=== PATIENT | female | born 1940 | race Caucasian/White ===

== ENCOUNTER 2016-06-29 13:00 | Inpatient (IN) | payer MEDICARE, OTHER ==
[~2016-06-29] VITALS: Ht 157.5 cm; Wt 56.3 kg
--- NOTE | ~2016-06-29 | DS ---
PATIENT'S NAME: LYNDA BAILEY [facility] AGE: 75 Y [address] ROOM: [place] [address] LOCATION: [facility] ADMIT DATE: 07/02/2016 Discharge Summary DISCHARGE DATE: 07/03/2016 FAMILY PHYSICIAN: Erickson Rai DO ATTENDING PHYSICIAN: Silviano See ADMISSION MAIN DIAGNOSIS: Ventriculoperitoneal shunt malfunction, hydrocephalus. DISCHARGE MAIN DIAGNOSIS: Ventriculoperitoneal shunt malfunction, hydrocephalus. PROCEDURE: Revision of right occipital ventriculoperitoneal shunt. COMPLICATIONS DURING ADMISSION: None. MEDICATIONS ON DISCHARGE: 1. Resume all preadmission medications as listed. 2. Tylenol 325 to 650 mg p.o. every 4 hours as needed. DISCHARGE INSTRUCTIONS AND FOLLOWUP APPOINTMENTS: 1. Myself on July 14, 2016 for staple removal. 2. Call my office directly for any concerns regarding the wound healing or for any new neurologic symptoms. 3. Keep the dressing on and dry till July 10, then take off and keep the wound open to air. HOSPITAL COURSE: The above patient was admitted electively to the hospital for the above-mentioned surgery. She underwent an unremarkable operation. Postoperatively, the patient did very well. She had no new neurologic symptoms or deficits. She mobilized well with physiotherapy and occupational therapy. On the day of discharge, she was examined. She remained neurologically intact. The occipital wound, abdominal wound were healing very well with no evidence of infection or dehiscence or CSF leak. She also had a shunt series x-ray done on postoperative day #1 and that showed no complications. She also had a noncontrast CT head done on the day of discharge and that showed slight improvement in the size of the lateral ventricles and no complications. I discussed the discharge instructions with the patient and her , and based on that, the patient was sent home. PATIENT'S NAME: LYNDA BAILEY [facility] AGE: 75 Y [address] ROOM: [place] [address] LOCATION: [facility] ADMIT DATE: 07/02/2016 Discharge Summary DISCHARGE DATE: 07/03/2016 FAMILY PHYSICIAN: Erickson Rai DO ATTENDING PHYSICIAN: Silviano See MD AB/modl /[id number] CC: Erickson Rai DO d: 07/04/16 0135 t: 07/05/16 1823, DISCHARGE SUMMARY
--- NOTE | ~2016-06-29 | OR ---
PATIENT'S NAME: LYNDA BAILEY [facility] AGE: 75 Y [address] ROOM: [place] [address] LOCATION: [facility] ADMIT DATE: 07/02/2016 OR/Procedure Report DISCHARGE DATE: FAMILY PHYSICIAN: Erickson Rai DO ATTENDING PHYSICIAN: SILVIANO SEE SURGEON: Silviano See MD [employer] MECH[employer]ICAL SPECIALIST: DATE OF PROCEDURE: 07/02/2016 ANESTHESIOLOGIST: Jace Castro M.D. ANESTHESIA: General. COMPLICATIONS: None. ESTIMATED BLOOD LOSS: Minimal. PREOPERATIVE DIAGNOSIS: Right ventriculoperitoneal shunt malfunction, hydrocephalus. POSTOPERATIVE DIAGNOSIS: Right ventriculoperitoneal shunt malfunction, hydrocephalus. PROCEDURE: Revision of right ventriculoperitoneal shunt (existing valve changed to Strata II valve, opening pressure set at 2). CLINICAL HISTORY: The patient is a 75-year-old female patient, who has a right occipital ventriculoperitoneal shunt. She was recently admitted to the hospital with worsening mental status, worsening unsteady gait, and urinary incontinence. She also had complete right wrist drop and she was diagnosed with partial right radial nerve palsy. The patient's shunt was examined and the shunt series did not show any disconnection of the tubing. I adjusted the valve opening pressure multiple times and despite that, the most recent followup CT scan did not show any significant change in the size of the ventricles. The patient's symptoms were moderate to severe. I recommended the above mentioned surgery to explore the shunt and revise it. The patient was brought in for the operation. DESCRIPTION OF PROCEDURE: The patient was seen in the preoperative care unit and the correct side was marked. Then, she was transferred to the main operating theater, was given general anesthetic and underwent endotracheal intubation without complications. Preoperative antibiotics were given. Calf compressors were used throughout the procedure. She was then positioned supine on the table and all her joints and bony prominences were securely padded. The patient's head was turned to the left side and gel bolster was PATIENT'S NAME: LYNDA BAILEY [facility] AGE: 75 Y [address] ROOM: [place] [address] LOCATION: [facility] ADMIT DATE: 07/02/2016 OR/Procedure Report DISCHARGE DATE: FAMILY PHYSICIAN: Erickson Rai DO ATTENDING PHYSICIAN: SILVIANO SEE positioned under the right shoulder. The hair overlying the right suboccipital region was clipped off. The valve region as well as the previous incision were exposed. The abdomen was also exposed and the previous right upper quadrant incision was identified. The surgical sites were then prepped and draped as per usual. I started by opening the abdominal incision. The skin was sharply opened down to the subcutaneous tissue, then the distal catheter was identified. Then, I proceeded to open the head incision. The skin was sharply opened down to the subcutaneous tissue, then using monopolar cautery, the tommy hole, distal part of the ventricular catheter as well as the valve were exposed. I first started by disconnecting the ventricular catheter from the valve. Immediately, CSF escaped under very low pressure. There was very good drainage from the ventricular catheter. Then, I disconnected the valve from the distal catheter. The distal catheter patency was then tested using a manometer. I noticed free flow of the saline through the distal catheter and based on that, I decided to not change the distal catheter. Given that, I proceeded to insert a new strata valve. The strata valve was set at 2 opening pressure. The valve was initially connected to the distal catheter, then to the proximal catheter, and the connection was tied off using 2-0 silk. The valve was then positioned in the subcutaneous pouch without complications. The valve was then anchored to the periosteal tissue with 4-0 Nurolon. I was satisfied with that. Then, I proceeded to closure. The wound was copiously irrigated with bacitracin-containing irrigation. The abdominal wound was closed in layers with 2-0 Vicryl to the subcutaneous tissue and herb for the skin. The head incision was closed in layers with 2-0 Vicryl to the galea and a running 3-0 Prolene for the skin. Sterile dressing and ointment were applied. At the end of the operation, the instrument and sponge counts were correct. The patient tolerated the operation without complications. MD AMARA AVILA/nneka /[id number] CC: Erickson Rai DO d: 07/02/16 1822 t: 07/05/16 1215, OPERATIVE SUMMARY
[~2016-06-29 13:00] MED LIST: ACETAMINOPHEN500 M1 PO; ARICEPT10 MG PO; CALCIUM CITRAT1 EA12 PO; CARBIDOPA-LEVO1 EAC3 PO; COL-RITE50 MG PO; FEMARA 2.5 MG2.5 MG PO; FOLIC ACID-VIT1 EAC1 PO; PRENATAL 1+1)(P1 TAB PO; PROBIOTIC PEAR1 EACH PO; REFRESH OPTIVE15 ML OPHTH; VITAMIN D-40400 UNIT PO; [UNRECOGNIZED DRUG - OTHER] PO
[2016-06-29] MEDS ORDERED: DITROPAN5 MG PO (13:03)
[2016-12-24] MEDS ORDERED: PROTONIX40 MG PO (11:04)
[2016-12-30] MEDS ORDERED: NUCYNTA50 MG PO (11:52)
== END 2016-07-03 10:46 | disposition disaster alternative care site (69) | DRG 32 ==
LOC: GNTU 07-02 05:35
PROVIDERS: ADMIT Neurological Surgery
PROC: 00W60JZ Revision of Synthetic Substitute in Cerebral Ventricle, Open Approach (ICD-10-PCS; principal; 2016-07-02)
DX: T85.09XA Other mechanical complication of ventricular intracranial (communicating) shunt, initial encounter (principal); G91.9 Hydrocephalus, unspecified; G20 Parkinson's disease; Y83.1 Surgical operation with implant of artificial internal device as the cause of abnormal reaction of the patient, or of later complication, without mention of misadventure at the time of the procedure; Z85.3 Personal history of malignant neoplasm of breast; E53.8 Deficiency of other specified B group vitamins
CPT/HCPCS: J0131; J0690; J1100; J1200; J2001; J2405; J3010; J7030

== ENCOUNTER → 2016-08-07 | Outpatient (CLI) | payer MEDICARE, OTHER ==
[~2016-08-07] MED LIST changes: +DITROPAN5 MG PO; +NUCYNTA50 MG PO; +PROTONIX40 MG PO
== END | disposition disaster alternative care site (69) ==
LOC: GRAD 09:59
DX: T85.618A Breakdown (mechanical) of other specified internal prosthetic devices, implants and grafts, initial encounter (principal); I51.7 Cardiomegaly

== ENCOUNTER → 2016-10-09 | Outpatient (CLI) | payer MEDICARE, OTHER | END | disposition disaster alternative care site (69) | LOC: GRAD 09:16 | DX: T85.618A Breakdown (mechanical) of other specified internal prosthetic devices, implants and grafts, initial encounter (principal) ==

== ENCOUNTER → 2016-12-30 | Day surgery (SDC) | payer MEDICARE, OTHER ==
[~2016-12-30] VITALS: Ht 160 cm; Wt 57.8 kg
--- NOTE | ~2016-12-30 | OR ---
PATIENT'S NAME: LYNDA BAILEY [facility] AGE: 76 Y [address] ROOM: [place] [address] LOCATION: [facility] ADMIT DATE: 12/30/2016 OR/Procedure Report DISCHARGE DATE: FAMILY PHYSICIAN: Mandie Singer MD ATTENDING PHYSICIAN: Sameera Chen SURGEON: Sameera Chen MD TEMPORARY HELP AGENCY REFERRAL CLERK: Nas Naranjo MD DATE OF PROCEDURE: 12/30/2016 POSTOPERATIVE DIAGNOSIS: Urinary incontinence. POSTOPERATIVE DIAGNOSIS: Urinary incontinence. PROCEDURE PERFORMED: Suprapubic cystostomy. ANESTHESIA: General. COMPLICATIONS: None. INDICATION FOR PROCEDURE: The patient is a 76-year-old female with urinary incontinence requiring chronic Swift catheter. The patient was noted to have significant leakage around her catheter. Therefore, it was decided she possibly would need bladder neck closure along with her suprapubic cystostomy. DETAILS OF PROCEDURE: After informed consent was obtained, the patient was taken to the operating room. A general anesthetic was applied. She was placed in the dorsal lithotomy position. The groin area and lower abdomen were prepped and draped in the normal sterile fashion. Cystoscope was then introduced into the urethra and bladder without difficulty and the bladder was filled to capacity. Next, the Lowsley retractor was introduced and the tip placed against the abdominal wall. A skin incision was made over the tip of the Lowsley retractor and then electrocautery was used to carry the incision down to the anterior fascial layer. This was then opened with electrocautery exposing, bringing the tip of the Lowsley retractor into the operative field. A 24-Japanese Swift catheter was attached to the tip of the Lowsley retractor and pulled through. The cystoscope was slowly backed into the bladder under direct visualization with the cystoscope. The balloon was inflated. I then injected approximately 120 mL into the bladder and the patient did not leak per urethra. Since the patient did not leak, it was decided to leave the bladder neck open. Next, 0 Prolene sutures in a vertical mattress fashion were used to close her abdominal incision. The catheter was secured with 0 Prolene sutures. The wound was then dressed in normal sterile fashion. The patient tolerated the procedure well and was transferred to recovery room in good condition. PATIENT'S NAME: LYNDA BAILEY [facility] AGE: 76 Y [address] ROOM: [place] [address] LOCATION: [facility] ADMIT DATE: 12/30/2016 OR/Procedure Report DISCHARGE DATE: FAMILY PHYSICIAN: Mandie Singer MD ATTENDING PHYSICIAN: Sameera Chen MD JENI MOFFETT/nneka /[id number] d: 12/30/162238 t: 01/12/17 1645, OPERATIVE SUMMARY
[2016-12-30 08:15] LABS: BASOPHIL % 0.6 %; EOSINOPHIL # 0.3 K/uL (0.0-0.5); HEMATOCRIT 42.2 % (33.0-46.0); HEMOGLOBIN 14.1 g/dL (10.0-15.0); IMMATURE GRANULOCYTE % 0.4 %; LYMPHOCYTE # 1.4 K/uL (0.8-4.0); LYMPHOCYTE % 18.8 %; MCH 29.1 pg (27.0-34.0); MCHC 33.4 gm/dL (32.0-36.5); MCV 87.2 fl (83.0-98.0); MONOCYTE # 0.5 K/uL (0.0-1.0); MONOCYTE % 7.5 %; MPV 8.5 fl (9.4-12.4); NEUTROPHIL # (ANC) 4.9 K/uL (1.8-7.8); NEUTROPHIL % 68.7 %; NRBC % 0 /100WBC (0-0.00); PLATELET COUNT 282 K/uL (150-450); RBC 4.84 M/uL (3.50-5.50); RDW-CV 12.5 % (11.9-14.6); WBC 7.2 K/uL (4.0-11.0)
[2016-12-30 08:34] LABS: ALBUMIN 3.6 gm/dL (3.5-5.0); ANION GAP 10.1 (10.0-19.0); CALCIUM 9.1 mg/dL (8.5-10.5); CREATININE 0.6 mg/dL (0.5-1.1); POTASSIUM 4.1 mMol/L (3.7-5.1); TOTAL BILIRUBIN 0.4 mg/dL (0.0-1.5); TOTAL PROTEIN 7.1 g/dL (6.0-8.4)
== END | disposition disaster alternative care site (69) ==
LOC: GPOC 12-24 13:00 → GSDC 07:26 → GPOC 08:00
PROVIDERS: Urology
PROC: 0T9B00Z Drainage of Bladder with Drainage Device, Open Approach (ICD-10-PCS; principal; 2016-12-30)
DX: N39.41 Urge incontinence (principal); G20 Parkinson's disease; M81.0 Age-related osteoporosis without current pathological fracture; Z88.2 Allergy status to sulfonamides; Z88.5 Allergy status to narcotic agent; F32.9 Major depressive disorder, single episode, unspecified; E53.8 Deficiency of other specified B group vitamins; Z90.49 Acquired absence of other specified parts of digestive tract; Z85.3 Personal history of malignant neoplasm of breast; Z98.890 Other specified postprocedural states; Z90.10 Acquired absence of unspecified breast and nipple; Z79.899 Other long term (current) drug therapy
CPT/HCPCS: J0690; J1956; J2001; J2405; J3010; J7120